=== PATIENT | male | born 1965 | race Caucasian/White ===

== ENCOUNTER 2024-01-07 07:00 | Observation (INO) ==
--- NOTE | 2023-12-09 11:55 | PAT Medication Instructions ---
Medication Instructions Date of Service December 09, 2023 Home Medications Medication Instructions Recorded cephalexin 500 mg capsule 500 mg PO QID #40 caps 11/26/23 sulfamethoxazole 800 1 tab PO BID #20 tabs 11/26/23 mg-trimethoprim 160 mg tablet (Bactrim DS) furosemide 20 mg tablet 20 mg PO QAM lisinopril 2.5 mg tablet 2.5 mg PO QAM metoprolol succinate 50 mg tablet,extended release 24 hr 50 mg PO QAM aspirin 81 mg capsule 81 mg PO QAM cephalexin 500 mg capsule 500 mg PO QID sulfamethoxazole 800 mg-trimethoprim 160 mg tablet (Bactrim DS) 1 tab PO BID ASK your prescriber and surgeon aspirin 81 mg capsule 81 mg PO QAM DO NOT take the morning of surgery furosemide 20 mg tablet 20 mg PO QAM lisinopril 2.5 mg tablet 2.5 mg PO QAM Take morning of surgery With a small sip of water, OTHERWISE NOTHING TO EAT OR DRINK AFTER MIDNIGHT: metoprolol succinate 50 mg tablet,extended release 24 hr 50 mg PO QAM cephalexin 500 mg capsule 500 mg PO QID sulfamethoxazole 800 mg-trimethoprim 160 mg tablet (Bactrim DS) 1 tab PO BID Take evening before surgery cephalexin 500 mg capsule 500 mg PO QID sulfamethoxazole 800 mg-trimethoprim 160 mg tablet (Bactrim DS) 1 tab PO BID Other Notes If you have any questions please call us at [phone] or [phone] or [phone] or [phone]
--- NOTE | 2023-12-14 14:00 | Anesthesiology Consultation ---
Date of Service December 14, 2023 Assessment & Plan (1) Encounter for pre-operative examination: - Infectious disease screening: Per assessment on 12/14/23: No known infectious disease contacts or current infectious disease symptoms. No noted recent Covid positive test result. - Outpatient joint assessment: Pt currently scheduled for inpatient pathway. Case reviewed with Dr. De La Rosa. If surgeon requests review for outpatient joint pathway, patient is an acceptable candidate for outpatient joint program from anesthesia standpoint pending surgeon's office assessment that patient is motivated, has good support and completes [facility] preop requirements. - Case reviewed with Dr. De La Rosa. He does not feel that updated cardiac testing and/or evaluation needed prior to surgery from his perspective. Chart Review Chart Review: Acceptable Risk for Surgery and Patient seen in Pre Admission Testing Teaching & Discussion Pre-Anesthesia Teaching/Discussion Notes: Instructed NPO after midnight before surgery,except medications with 15 cc of water. Medication instructions provided according to the PAT guidelines. History Surgery Operation Date: 01/07/24 08:40 Proposed Procedures p Right Total Knee Arthroplasty - Bhargav Zhang DO Height/Weight Height: 5 ft 9 in Weight: 100 kg Allergies Allergy/AdvReac Type Severity Reaction Status Date / Time No Known Allergies Allergy Unknown Verified 11/30/23 13:14 Medications Home Medications Medication Instructions Recorded Confirmed Last Taken furosemide 20 mg tablet 20 mg PO QAM 12/19/21 11/30/23 11/23/22 lisinopril 2.5 mg tablet 2.5 mg PO QAM 12/19/21 11/30/23 11/23/22 metoprolol succinate 50 mg 50 mg PO QAM 12/19/21 11/30/23 11/23/22 tablet,extended release 24 hr aspirin 81 mg capsule 81 mg PO QAM 12/26/21 11/30/23 11/23/22 Past Medical History Medical History History of COVID-19 07/2021: mild symptoms > resolved Hx of migraines Remote hx 15+ years ago Hypertension Mitral valve disease s/p mitral valve repair (2014) DSE 10/2021: There is evidence of prior mitral valve repair. There is a mitral valve annuloplasty ring present. Significant MR absent. Mitral stenosis is absent. Followed with [facility] cardio (last seen 2022) Exercise / Class Metabolic Activity II 4-5 Yardwork/Stairs/Walk up hill (one FS: No CP, no SOB) Past Family History Family History Sister Family history of diabetes mellitus Brother Family history of diabetes mellitus Other No family history of adverse response to anesthesia Past Surgical History Surgical History History of arthroscopy of right knee x4 History of cardiac cath 2018- no stents, "the coronary arteries are angiographically normal" History of colonoscopy History of right cataract surgery History of tonsillectomy History of tooth extraction Hx of left cataract extraction Hx of mitral valve repair 2014 ([facility]) Past Anesthesia History No Hx of Anesthesia Complications and No Family Hx of Anesthesia Complications History of PONV No Hx of PONV and No Hx of Motion Sickness Social History Smoking Status: Never smoker Do You Dip or Chew Tobacco: No Hx Alcohol Use: Yes Alcohol type: beer alcohol intake frequency: a few times a month Hx Substance Use: No substance use type: does not use Review of Systems Patient denies chest pain, shortness of breath, dyspnea on exertion, fever, chills, cough, wheezing, palpitations. Physical Exam Vital Signs BP 119/76 P 65 TEMP 98.3 SP02 97%RA RESP 18 Physical Full cervical extension range of motion. Full TMJ range of motion. TMD > 3.5 finger breaths Mallampati Score 3 Dentition: intact, + crown Lungs: clear throughout to auscultation Cardiac: regular rate and rhythm, no murmurs noted Spine: normal Carotid arteries: negative bruit Extremities: no LE edema Lab Results Anesthesia Preop Results Results Anesthesia Widget: WBC 8.54 K/ul (4.8-10.8) 12/14/23 Hgb 14.1 g/dl (14.0-18.0) 12/14/23 Hct 41.8 % (42.0-52.0) L 12/14/23 Plt 298 K/uL (130-400) 12/14/23 Na 139 mmol/L (136-145) 12/14/23 K 3.7 mmol/L (3.5-5.1) 12/14/23 Cl 106 mmol/L (98-107) 12/14/23 CO2 27 mmol/L (21-32) 12/14/23 BUN 14 mg/dl (6-23) 12/14/23 Creat 0.87 mg/dl (0.6-1.4) 12/14/23 Glucose Level 98 mg/dl (70-99(Fasting)) 12/14/23 PT 11.2 Seconds (9.0-12.0) 12/14/23 PTT 25 Seconds (21-31) 12/14/23 INR 1.0 (0.9-1.1) 12/14/23 Blood Type AB Positive 12/14/23 Antibody Screen NEGATIVE 12/14/23 Testing Electrocardiogram Date: 12/14/23 NSR at 61bpm. "Normal ECG" Chest X-Ray Date: 12/14/23 FINDINGS: There are low lung volumes. No pneumothorax. No pleural effusions. The lungs are clear. The heart is normal in size. Poststernotomy changes are noted. No evidence for pulmonary edema. IMPRESSION: No acute process. Stress Test Date: 10/09/21 Type: DSE Stress echo was negative for inducible ischemia. 90% MPHR. LVEF 61%. Grade I DD. Mild aortic sclerosis. There is evidence of prior mitral valve repair. There is a mitral valve annuloplasty ring present. Significant MR absent. Mitral stenosis is absent. Cardiac Catheterization Date: 08/31/19 The coronary arteries are angiographically normal. The LVEDP is 20 mmHg. Recommendations: Continued medical management.
[~2024-01-07 07:00] MED LIST: ROPIVACAINE 0.5% 5 MG/ML 30 ML VIAL ONE
--- NOTE | 2024-01-07 08:06 | History & Physical Bridge Note ---
Date of Service January 07, 2024 History & Physical Bridge Note I have examined the patient, reviewed the History & Physical and in the interval since the performance of the History & Physical I have noted the following changes of clinical significance: no changes noted
[2024-01-07] MEDS ORDERED: MIDAZOLAM HCL 1 MG/ML 2ML VIAL ONE (08:09)
[2024-01-07] MEDS ORDERED: fentaNYL citrate PF 100 MCG/2 ML VIAL ONE (08:09)
[2024-01-07] MEDS: GABAPENTIN 600 MG DOSE PO SCH (08:09)
[2024-01-07] MEDS: FAMOTIDINE 20 MG TAB PO SCH (08:09)
[2024-01-07] MEDS: dexAMETHasone**PF** 10 MG/ML VIAL IV SCH (08:09)
[2024-01-07] MEDS: ACETAMINOPHEN 500 MG TAB PO SCH ×2 (08:09→13:40)
[2024-01-07] MEDS: LR 60ML/HR IV SCH (08:10)
[2024-01-07] MEDS: LR 500ML BOLUS, THEN 15ML/HR IV SCH (08:10)
[2024-01-07] MEDS ORDERED: HYDROmorphone INJ 1 MG/ML SYRINGE IV PRN (08:20)
[2024-01-07] MEDS ORDERED: fentaNYL citrate PF 100 MCG/2 ML VIAL IV PRN (08:20)
[2024-01-07] MEDS ORDERED: ePHEDrine sulfate 50 MG/ML AMP IV PRN (08:20)
[2024-01-07] MEDS ORDERED: ATROPINE SULFATE 0.1 MG/ML 10ML SYR IV PRN (08:20)
[2024-01-07] MEDS ORDERED: ONDANSETRON INJ 2 MG/ML 2 ML VIAL IV PRN ×2 (08:20→11:26)
[2024-01-07] MEDS: TRANEXAMIC ACID 1,000 MG **IV Pre-op IV SCH (08:40)
[2024-01-07] MEDS: ceFAZolin 2000MG 2,000 MG/15 ML SYR IV SCH ×2 (09:00→17:34)
[2024-01-07] MEDS: ORTHO JOINT ANESTHETIC ONE (09:30)
[2024-01-07] MEDS: ROPIV 0.5% 246mg, Ketorolac 30mg, EPINEPHrine 0.5mg in NSS INFIL SCH (09:30)
[2024-01-07] MEDS ORDERED: PROPOFOL IV EMULSION 10 MG/ML 20 ML VIAL IV ONE (09:55)
[2024-01-07] MEDS ORDERED: LIDOCAINE 2% 2 ML VIAL/AMP(20MG/ML) INFIL ONE (09:55)
[2024-01-07] MEDS: TRANEXAMIC ACID 1,000 MG **IV Intra-op IV SCH (10:14)
--- NOTE | 2024-01-07 10:16 | Operative Report ---
PG Post Operative Report Pre & Post Diagnosis Operation Date: 01/07/24 09:00 Pre-Op Diagnosis: Degenerative Joint Disease Right Knee Post-Op Diagnosis: Degenerative Joint Disease Right Knee I identified the patient and participated in the time-out.: Yes Procedure Operation Date: 01/07/24 09:00 Actual Procedures p Right Total Knee Arthroplasty, Cemented(Right) - Bhargav Zhang DO Surgeon Bhargav Zhang DO Adult Manager Bhargav Magdaleno PA-C Estimated Blood Loss 30 Findings Consistent with Post-Op Diagnosis Specimens Right femoral and tibial bone Description of Procedure Implants used: I used a [employer] Persona total knee arthroplasty system with a size 9 standard femur, F tibia, 34 oval patella, and a size 10 medial congruent polyethylene bearing. All components were cemented in place with Biomet cement. [place] arrived [facility] for the above procedure. He was seen in the preoperative holding area and the operative extremity was identified and signed. He was given a preoperative antibiotic, TXA, a spinal anesthetic and an adductor nerve block. He was taken back to the operating room and laid on the table in supine position. He was given basic sedation. The operative knee was then prepped and draped in sterile fashion. A timeout was done, and the patient and the operative extremity was properly identified. A midline incision was made directly over the patella. Dissection was taken down to the extensor mechanism. A midvastus arthrotomy was used. The medial retinaculum was released and the fat pad was mostly excised. The knee was flexed and the ACL, PCL, and meniscus were removed. A drill was sent down the center of the femoral canal followed by an intramedullary phil. Off that phil a distal femoral cutting block was placed. 9 mm was resected off the distal femur at 5 of valgus. A posterior referencing AP sizing guide was then placed on the distal femur. The femur measured to be a size 9. 2 drill holes were placed in 3 of external rotation. A 4-in-1 cutting block was then impacted into place. Anterior, posterior, and chamfer cuts were then made. The proximal tibia was then exposed. An external tibial alignment guide was placed. A tibial cut guide was then anchored in place and the proximal tibia was then resected. The posterior aspect of the knee was then opened up and any additional meniscus fragments and osteophytes were removed. The tibia measured to be a size F. The tibial plate was then placed in the appropriate rotation and the tibia was drilled and punched. Trial components were then placed. I used a size 10 medial congruent polyethylene insert. The knee was brought through a full range of motion and felt to be stable. The peg holes for the femoral component were then drilled. The patella was then everted and 9 mm was resected off the posterior aspect of the patella. The patella measured to be a size 34 oval. 3 peg holes were then drilled. A trial patella was placed. The knee was once again brought through a full range of motion and felt to be stable. Trial components were then removed. The surrounding soft tissues were injected with 100 cc of an orthopedic pain control cocktail. All components were then cemented into place with Biomet cement. The final polyethylene insert was then snapped into place. Once cement was dry the tourniquet was deflated. Hemostasis was obtained. A dilute betadyne lavage was then done for 3 minutes. The joint was then irrigated with normal saline solution. The midvastus arthrotomy was then closed with #1 Vicryl suture. The skin was closed with 2-0 Vicryl, 3-0V lock suture, and josefina. A soft compressive dressing was placed. He was then transferred to a hospital bed and taken to the postanesthesia care unit in stable condition. He tolerated the procedure well. Bhargav Magdaleno PA-C, was present for the entire procedure. He was critical for patient positioning, prepping, draping, retraction exposure, wound closure and application of sterile dressing. I attest to the content of the Intraoperative Record and any orders documented therein. Any exceptions are noted below.
[2024-01-07] MEDS ORDERED: HYDROmorphone INJ 0.5 MG/0.5 ML SYR IV PRN (11:26)
[2024-01-07] MEDS ORDERED: bisacodyL 10 MG SUPP PR PRN (11:26)
[2024-01-07] MEDS ORDERED: METOCLOPRAMIDE HCL INJ 5 MG/ML 2 ML VIAL IV PRN (11:26)
[2024-01-07] MEDS ORDERED: NALOXONE HCL 0.4 MG/1 ML VIAL/CARP IV PRN (11:26)
[2024-01-07] MEDS ORDERED: MAGNESIUM HYDROXIDE SUSP 30 ML UDC PO PRN (11:26)
--- NOTE | 2024-01-07 11:35 | XRay Report ---
XR knee RT 1 or 2V routine HISTORY: 58 years-old Male Surgical Post Op right knee arthroplasty COMPARISON: 12/13/2002 4 TECHNIQUE: 2 views of the right knee FINDINGS: Total joint arthroplasty with patellar resurfacing. Anterior midline skin josefina with expected posto perative soft tissue swelling and deep tissue air. No acute fracture or unexpected opaque foreign bod y. IMPRESSION: Total joint arthroplasty with expected postoperative changes. ACT 112: Negative or not required by law. The above report was generated using voice recognition software. It may contain grammatical, syntax o r spelling errors. Electronically signed by: Solitario Lu M.D. 01/07/2024 11:34 AM
[2024-01-07] MEDS: SODIUM CHLORIDE 0.9% 1,000 ML IV SCH (11:45)
[2024-01-07] MEDS: KETOROLAC 30 MG/ML VIAL IV SCH (12:13)
--- NOTE | 2024-01-07 13:17 | Anesthesiology Progress Note ---
Date of Service January 07, 2024 Anesthesia Post Procedure Vital Signs Vital Signs: Temp Pulse Pulse Resp BP BP Pulse Ox 01/07/24 12:36 36 C L 77 14 136/92 95 01/07/24 12:00 36.5 C 64 14 142/96 H 97 01/07/24 11:26 36.5 C 65 16 128/87 99 01/07/24 11:05 36.4 C L 64 17 126/81 97 01/07/24 11:00 62 12 109/78 97 01/07/24 10:50 59 L 15 122/75 100 01/07/24 10:40 58 L 12 117/70 100 01/07/24 10:31 36 C L 69 13 109/80 100 01/07/24 07:42 36.8 C 70 20 148/96 H 97 O2 Del Method O2 Flow Rate 01/07/24 12:36 Room Air 01/07/24 12:00 Room Air 01/07/24 11:26 Room Air 01/07/24 11:05 Room Air 01/07/24 11:00 Room Air 01/07/24 10:50 Oxymask 4 01/07/24 10:40 Oxymask 9 01/07/24 10:31 Oxymask 9 01/07/24 07:42 Room Air Pain Intensity Right Knee: Pain Intensity: 8 Transfer of Care Handoff Completed per policy Notes Mental Status: alert / awake / arousable and participated in evaluation Patient Amnestic to Procedure: Yes Nausea / Vomiting: adequately controlled Pain: adequately controlled Airway Patency, RR, SpO2: stable & adequate BP & HR: stable & adequate Hydration State: stable & adequate Neuraxial Anesthesia: was administered and sensory block is resolving Anesthetic Complications: no major complications apparent and Pt Satisfied with anesthetic care
[2024-01-07] MEDS: oxyCODONE HCL IR 5 MG TAB (IMMEDIATE RELEASE) PO PRN (14:15)
[2024-01-07] MEDS: SENNA 8.6 MG TAB PO SCH (19:58)
[2024-01-07] MEDS: DOCUSATE SODIUM 100 MG CAP PO SCH (19:59)
[2024-01-07] MEDS: ASPIRIN 81 MG ECTAB PO SCH (19:59)
[2024-01-08] MEDS: dexAMETHasone 4 MG TAB PO SCH (08:04)
[2024-01-08] MEDS: lisinopril 2.5 MG TAB PO SCH (08:04)
[2024-01-08] MEDS: METOPROLOL SUCC 50MG EXT REL TAB PO SCH (08:04)
[2024-01-08] MEDS: FUROSEMIDE 20 MG TAB PO SCH (08:04)
[2024-01-08] MEDS: MULTIVITAMIN TAB PO SCH (08:04)
--- NOTE | 2024-01-08 09:22 | Orthopedic Progress Note ---
Date of Service January 08, 2024 Assessment & Plan (1) Status post right knee replacement: Overall he is doing very well. He is not having much pain in the right knee. He will be seen by physical therapy today for ambulation and range of motion exercises. The nursing staff can change his dressing after physical therapy. He is on aspirin for DVT prophylaxis. He can be discharged to home later today. He will follow-up with orthopedics in 2 weeks. Marylu Perry was seen and examined at bedside this morning. Overall he is doing very well. He is not having much pain in the right knee. He has been up and ambulating to the bathroom. He has no complaints.. Review of Systems All systems reviewed & are unremarkable except as noted in HPI & below. Physical Exam On physical examination the right knee, the dressing is clean and dry. His leg is out in full extension. He has active dorsiflexion plantarflexion of his right ankle.. Results & Data Results & Data Laboratory Results . Diagnostic Findings Postoperative x-rays of the right knee show the prosthesis to be in anatomic alignment without any evidence of fracture, desiccation, or loosening.. PG Care Time/CCT Total # of Minutes Spent Total Time Spent with Patient: Total time spent is greater than 50% in coordination of care (as documented) at patient's floor/unit and/or counseling patient: Coding Level of Care Code 37938 Post Operative Follow-Up Diagnoses Status post right knee replacement Z96.651
--- NOTE | 2024-01-08 09:23 | Discharge Summary ---
Date of Service January 08, 2024 Principal Diagnosis Same as "Discharge Diagnosis" noted below under Discharge Instructions. Discharge Exam On physical examination the right knee, the dressing is clean and dry. His leg is out in full extension. He has active dorsiflexion plantarflexion of his right ankle.. Discharge Data Procedures Performed Operation Date: 01/07/24 09:00 Actual Procedures p Right Total Knee Arthroplasty, Cemented(Right) - Bhargav Zhang DO Ordered Studies 01/07/24 05:00 US - OR guided needle placemen Routine Hospital Course (1) Status post right knee replacement: On January 07, 2024 [place] arrived at [facility] and underwent a right knee replacement without complication. He had a spinal anesthetic. Postoperatively he was started on aspirin for DVT prophylaxis and transferred to the general orthopedic floors. His hospital course was uneventful. On postop day #1, his vital signs were stable and his pain was well-controlled. He was able to put his feet well with physical therapy doing ambulation and range of motion exercises. He was then discharged home. He will follow-up with orthopedics in 2 weeks. PG Care Time/CCT Total # of Minutes Spent Total Time Spent with Patient: Total time spent is greater than 50% in coordination of care (as documented) at patient's floor/unit and/or counseling patient: Discharge Plan Discharge Items Patient Disposition: Home - Self-Care Reason For Visit: Degenerative Joint Disease Right Knee Discharge Diagnosis: Right knee replacement Activity: Per Instructions section Non-emergency contact: Surgeon Call non-emergency contact if: your wound has increased redness and your wound has increased drainage Follow-up/Referrals: Fabio Lion DO [Primary Care Provider] - Diet: Regular Addtl Attending Provider Instructions: Activity and Therapy Recommendations: * If you are using [facility] then therapy will be provided at your home until they feel you have accomplished all of your goals. * If you are using [facility] then Physical Therapy will be provided until they feel you are ready to start Outpatient Physical Therapy. * If you are not using home therapy then Outpatient Physical Therapy should start about 3-5 days from your day of surgery. Therapy will last about 6-10 weeks * It is important not to put a pillow under your knee when you are relaxing or sleeping. It is just as important to make sure you are getting your knee perfectly straight as it is to regain your knee bend. * You were shown a series of exercises in the hospital. Do these exercises three times each day including the exercises you were shown in physical therapy. * Get up and walk several times each day. For the first four weeks, try not to stand or walk for more than one hour at a time. If you do stand or walk for more than one hour, you will not hurt anything, but your leg will likely swell. * As you feel comfortable, you may change from the walker or crutches to a cane and then to independent walking. Medications: * Narcotic You will likely be sent home from the hospital with a prescription for the narcotic pain medication that worked best throughout your stay. * Cefadroxil -take the antibiotic twice a day for 10 days to help with infection. * Aspirin Most patients will be required to take Aspirin 81mg twice a day for 6 weeks after surgery. This is obtained [id number] and a prescription is not necessary. * Other medications may be prescribed for specific circumstances. If you have any questions, please call the office at . * Resume previous home medications unless otherwise instructed TEDs/Elastic Stockings: The white elastic stockings help limit swelling and prevent blood clots from forming in your legs.~ The more you wear them, the more they work. Wear them for six weeks. Dressing Care: The dressing can be changed after physical therapy on postop day #1. Daily dry dressing changes for a few days, especially if the incision is still draining some. If the incision is not draining then you may leave the josefina open to air. If there is a little bit of drainage or if the josefina are getting stuck on your clothing then cover the incision with a dry dressing. The josefina will be removed at your 2 week follow-up appointment. Showering: You may shower 5 days from the day of surgery as long as the incision is no longer draining. You may shower with the josefina exposed. Let soapy water run over the josefina and pat them dry. Do not scrub or soak the incision. Things To Watch For: * Drainage from the incision site that occurs more than one week after your surgery. * Increased redness at the incision site. * Fever above 102 degrees Fahrenheit. * Unusual chest pain or shortness of breath. * Call [facility] at with any of the above problems Follow-Up Visit: Follow-up with Dr. Zhang's PA (Bhargav Magdaleno) 2-3 weeks after your day of surgery. He will remove your josefina and answer any questions. If you have any additional questions or concerns, Dr Zhang is usually in the office at the same time and will be available An appointment was probably scheduled when you signed-up for surgery in the office. If you have any questions call Office Instructions: More detailed instructions as well as Frequently Asked Questions were provided in a folder by our office when you signed-up for surgery. Please review these instructions when you get home. If you have any further questions or concerns, please feel free to call the office at [phone] Pending Studies at Discharge: No Stand-Alone Forms: [facility], Smoking Cessation Medications and DC Order Prescriptions: New oxycodone 5 mg Tablet 5 mg PO Q4H PRN (Reason: pain) Qty: 30 0RF cefadroxil 500 mg capsule 500 mg PO BID 10 Days Qty: 20 0RF Continued lisinopril 2.5 mg tablet 2.5 mg PO QAM furosemide 20 mg tablet 20 mg PO QAM metoprolol succinate 50 mg tablet extended release 24 hr 50 mg PO QAM Changed aspirin 81 mg Capsule 81 mg PO BID 42 Days Qty: 0 0RF Discharge Orders: Discharge Order (Routine); Ordered 01/08/24 Ordered By: Bhargav Zhang Admission Data Admit Date/Time: 01/07/24 10:36 Attending Provider: Bhargav Zhang Admit Provider: Bhargav Zhang Primary Care Provider: Fabio Lion
== END 2024-01-08 10:53 | disposition home or self-care (01) ==
LOC: 3E 07:00 → ASU 07:00